=== PATIENT | male | born 1980 | race American Indian/Alaskan Native ===

== ENCOUNTER 2017-07-03 19:24 | Inpatient (IN) | payer OTHER ==
[2017-07-03 20:12] LABS: Basophils % (Auto) 0.4 % (0.0-1.8); Hematocrit 30.1 % (35.5-45.6); Hemoglobin 9.1 gm/dl (11.8-15.2); Mean Corpuscular HGB Conc 30 % (32-34); Mean Corpuscular Volume 71 fl (84-94); Platelet Count 308 K/mm3 (140-440); Red Blood Count 4.27 M/mm3 (3.65-5.03); White Blood Count 10.8 K/mm3 (4.5-11.0)
[2017-07-03 20:13] LABS: Mean Corpuscular Hemoglobin 21 pg (28-32); Red Cell Distribution Width 22.1 % (13.2-15.2)
[2017-07-03 20:43] LABS: Calcium 8.9 mg/dL (8.4-10.2); Chloride 92.6 mmol/L (98-107)
[2017-07-03 21:10] LABS: Potassium 2.9 mmol/L (3.6-5.0)
[2017-07-04 03:16] LABS: Bilirubin,Urine NEG (Negative); Blood,Urine NEG (Negative); Ketones,Urine NEG (Negative); Leukocyte Esterase,Urine NEG (Negative); Mucus,Urine FEW /HPF; Nitrite,Urine NEG (Negative)
[2017-07-04] MEDS ORDERED: TORADOL IM ONE (04:50)
[2017-07-04] MEDS ORDERED: COLCRYS PO ONE (04:53)
--- NOTE | 2017-07-04 06:12 | Emergency Department Report ---
ED Extremity Problem HPI - General Chief complaint: Extremity Problem,Nontraumatic Stated complaint: NUMBNESS TO RIGHT HAND Time Seen by Provider: 07/04/17 04:49 Source: patient Mode of arrival: Ambulatory Limitations: No Limitations - History of Present Illness Initial comments: 37 YO MALE WITH COMPLAINT OF RIGHT HAND SWELLING SINCE FRIDAY. HIS SWELLING HAS INCREASED . HE HAD SIMILAR PAIN AND SWELLING 2 MONTHS AGO AND IT RESOLVED ON ITS OWN. HE IS MORBIDLY OBESE WITH H/O CHF, HYPERTENSION AND GOUT MD Complaint: extremity pain -: Gradual Location: right, upper extremity History of Same: Yes (2 MONTHS AGO, WITH RIGHT INDEX FINGER) Severity scale (0 -10): 6 Quality: aching Consistency: constant Improves with: immobilization Worsens with: other (MOVEMENT) Associated Symptoms: denies: chest pain, shortness of breath - Related Data Home Medications Medication Instructions Recorded Confirmed Last Taken Furosemide [Lasix] 80 mg PO BID 12/16/14 05/22/16 05/22/16 Apixaban [Eliquis] 5 mg PO BID 05/22/16 05/22/16 05/22/16 Sacubitril/Valsartan [Entresto 24 1 each PO BID 05/22/16 05/22/16 05/22/16 mg-26 mg Tablet] Previous Rx's Medication Instructions Recorded Last Taken Type Pantoprazole [Protonix TAB] 20 mg PO BID #60 tablet 12/02/13 05/22/16 Rx Albuterol *Only Ed* [Proventil 2.5 mg IH BID PRN #1 box 11/04/14 04/13/15 Rx 0.5% NEBS] Aspirin EC [Aspirin Enteric Coated 81 mg PO QDAY #30 tablet. 11/04/14 Rx TAB] Simvastatin [Zocor TAB] 5 mg PO QHS 30 Days 11/04/14 04/13/15 Rx Colchicine [Colcrys] 0.6 mg PO BID #30 tab 05/28/16 Unknown Rx Digoxin [Digitek] 250 mcg PO DAILY #30 tablet 05/28/16 Unknown Rx Metoprolol [Lopressor TAB] 50 mg PO TID #90 tablet 05/28/16 Unknown Rx Clindamycin [Clindamycin CAP] 300 mg PO Q8H #30 cap 06/16/16 Unknown Rx Allergies Allergy/AdvReac Type Severity Reaction Status Date / Time No Known Allergies Allergy Unverified 11/25/13 21:37 ED Review of Systems ROS: Stated complaint: NUMBNESS TO RIGHT HAND Other details as noted in HPI Constitutional: denies: chills, fever Eyes: denies: eye pain, eye discharge, vision change ENT: denies: ear pain, throat pain Respiratory: denies: cough, shortness of breath, wheezing Cardiovascular: denies: chest pain, palpitations Endocrine: no symptoms reported Gastrointestinal: denies: abdominal pain, nausea, diarrhea Genitourinary: denies: urgency, dysuria Musculoskeletal: denies: back pain, joint swelling, arthralgia Skin: denies: rash, lesions Neurological: denies: headache, weakness, paresthesias Psychiatric: denies: anxiety, depression Hematological/Lymphatic: denies: easy bleeding, easy bruising ED Past Medical Hx - Past Medical History Previous Medical History?: Yes Hx Hypertension: Yes Hx Congestive Heart Failure: Yes Hx Diabetes: No Hx Pulmonary Embolism: No Hx Asthma: No Hx COPD: No Hx Tuberculosis: No Hx HIV: No Additional medical history: HX BRONCHITIS, pneumonia, A-fib,GOUT - Surgical History Past Surgical History?: No - Social History Smoking Status: Never Smoker Substance Use Type: None - Medications Home Medications: Home Medications Medication Instructions Recorded Confirmed Last Taken Type Pantoprazole [Protonix TAB] 20 mg PO BID #60 tablet 12/02/13 05/22/16 05/22/16 Rx Albuterol *Only Ed* [Proventil 2.5 mg IH BID PRN #1 box 11/04/14 05/22/1604/13 Rx 0.5% NEBS] Aspirin EC [Aspirin Enteric Coated 81 mg PO QDAY #30 tablet.dr 11/04/1405/22/16 Rx TAB] Simvastatin [Zocor TAB] 5 mg PO QHS 30 Days 11/04/14 05/22/16 04/13/15 Rx Furosemide [Lasix] 80 mg PO BID 12/16/14 05/22/16 05/22/16 History Apixaban [Eliquis] 5 mg PO BID 05/22/16 05/22/16 05/22/16 History Sacubitril/Valsartan [Entresto 24 1 each PO BID 05/22/16 05/22/16 05/22/16 History mg-26 mg Tablet] Colchicine [Colcrys] 0.6 mg PO BID #30 tab 05/28/16 Unknown Rx Digoxin [Digitek] 250 mcg PO DAILY #30 tablet 05/28/16 Unknown Rx Metoprolol [Lopressor TAB] 50 mg PO TID #90 tablet 05/28/16 Unknown Rx Clindamycin [Clindamycin CAP] 300 mg PO Q8H #30 cap 06/16/16 Unknown Rx ED Physical Exam - General Limitations: No Limitations General appearance: alert - Head Head exam: Present: atraumatic, normocephalic, normal inspection - Eye Eye exam: Present: normal appearance, EOMI - ENT ENT exam: Present: mucous membranes moist - Neck Neck exam: Present: normal inspection - Respiratory Respiratory exam: Present: normal lung sounds bilaterally. Absent: respiratory distress - Cardiovascular Cardiovascular Exam: Present: regular rate, normal rhythm, normal heart sounds - GI/Abdominal GI/Abdominal exam: Present: soft. Absent: tenderness, guarding, rebound - Extremities Exam Extremities exam: Present: tenderness (RIGHT HAND), pedal edema (BILATERAL LOWER EXTREMITY 4+) - Back Exam Back exam: Present: full ROM, rash noted - Neurological Exam Neurological exam: Present: alert, oriented X3 - Psychiatric Psychiatric exam: Present: normal affect, normal mood - Skin Skin exam: Present: dry, rash (MULTIPLE UMBILICATED HEALING LESIONS) ED Course Vital Signs 07/03/17 19:34 Temperature 97.6 F Pulse Rate 68 Respiratory 16 Rate Blood Pressure 130/89 O2 Sat by Pulse 98 Oximetry ED Medical Decision Making - Lab Data Result diagrams: 07/03/17 19:56 07/03/17 19:56 Critical care attestation.: If time is entered above; I have spent that time in minutes in the direct care of this critically ill patient, excluding procedure time. ED Disposition Clinical Impression: CHF exacerbation Qualifiers: Congestive heart failure type: unspecified congestive heart failure type Qualified Code(s): I50.9 - Heart failure, unspecified Obesity Qualifiers: Obesity type: unspecified obesity type Obesity classification: adult class 3 ( BMI >= 40) Serious obesity comorbidity presence: with serious comorbidity Body mass index: unspecified BMI Qualified Code(s): E66.9 - Obesity, unspecified Gout attack Qualifiers: Gout site: hand Encounter type: initial encounter Laterality: right Disposition: DC-09 OP ADMIT IP TO THIS HOSP Is pt being admited?: Yes Does the pt Need Aspirin: No Condition: Stable Referrals: PRIMARY CARE,MD [Primary Care Provider] - 3-5 Days
--- NOTE | 2017-07-04 07:17 | XRay Report ---
Right hand 3 views: History pleuritic and swelling and pain. Findings: No articular abnormality. No periosteal reaction or lytic lesion. No soft tissue calcification. No fracture. Impression: No evidence of acute fracture.
[2017-07-04] MEDS ORDERED: MORPHINE IV PRN (08:08)
[2017-07-04] MEDS ORDERED: TYLENOL PO PRN (08:08)
[2017-07-04] MEDS ORDERED: MILK OF MAGNESIA PO PRN (08:08)
[2017-07-04] MEDS ORDERED: NON-FORMULARY (Albuterol *Only Ed* [Proventil 0.5% Nebs] 2.5 MG) IH PRN (08:13)
[2017-07-04] MEDS ORDERED: ZOFRAN IM PRN (08:18)
--- NOTE | 2017-07-04 08:27 | History and Physical Report ---
<PARUL CA - Last Filed: 07/04/17 13:00> History of Present Illness Date of examination: 07/04/17 Date of admission: 07/04/2017 Chief complaint: Shortness of breath, right upper arm pain and Bilateral LE swelling History of present illness: Patient is a 36-year-old black male with past medical history of A. fib, hypertension, pulmonary embolism, CHF, chronic kidney disease, obesity comes emergency room with complaints of shortness breath,and increasing lower extremity swelling that has worsened over the last 3 days and right upper arm selling with pain. Patient was until 4 days ago patient was at his normal baseline state of health. Patient developed difficulty of breathing 3 days ago and he has had progressive worsening of shortness of breath. Last night when his trying to sleep on his bed, shortly after, he felt like he could not catch his breath and got worried so called 911 and brought him to the Emergency Department. Also he complains numbness and tingling to right hand, since yesterday. He reported right hand swollen. Posterior sensation; no other neuro deficit. Denies injury to right arm. Patient denies he has had no fevers , chills, or night sweats. No hx of recurrent pneumonia. He has no sick contact , TB exposure. Past History Past Medical History: heart failure, hypertension, hyperlipidemia, pulmonary embolism Past Surgical History: No surgical history Social history: lives with family. denies: smoking, alcohol abuse Family history: diabetes, hypertension Medications and Allergies Allergies Allergy/AdvReac Type Severity Reaction Status Date / Time No Known Allergies Allergy Unverified 11/25/13 21:37 Home Medications Medication Instructions Recorded Confirmed Last Taken Type Pantoprazole [Protonix TAB] 20 mg PO BID #60 tablet 12/02/13 05/22/16 05/22/16 Rx Albuterol *Only Ed* [Proventil 2.5 mg IH BID PRN #1 box 11/04/14 05/22/1604/13 Rx 0.5% NEBS] Aspirin EC [Aspirin Enteric Coated 81 mg PO QDAY #30 tablet. 11/04/1405/22/16 Rx TAB] Simvastatin [Zocor TAB] 5 mg PO QHS 30 Days 11/04/14 05/22/16 04/13/15 Rx Furosemide [Lasix] 80 mg PO BID 12/16/14 05/22/16 05/22/16 History Apixaban [Eliquis] 5 mg PO BID 05/22/16 05/22/16 05/22/16 History Sacubitril/Valsartan [Entresto 24 1 each PO BID 05/22/16 05/22/16 05/22/16 History mg-26 mg Tablet] Colchicine [Colcrys] 0.6 mg PO BID #30 tab 05/28/16 Unknown Rx Digoxin [Digitek] 250 mcg PO DAILY #30 tablet 05/28/16 Unknown Rx Metoprolol [Lopressor TAB] 50 mg PO TID #90 tablet 05/28/16 Unknown Rx Clindamycin [Clindamycin CAP] 300 mg PO Q8H #30 cap 06/16/16 Unknown Rx Active Meds: Active Medications Acetaminophen (Tylenol) 650 mg PO Q4H PRN PRN Reason: Pain MILD(1-3)/Fever >100.5/[place] Apixaban (Eliquis) 5 mg PO BID [facility] PRN Reason: Protocol Aspirin (Halfprin Ec) 81 mg PO QDAY [facility]ANYA Bisacodyl (Dulcolax) 10 mg [place] QDAY PRN PRN Reason: Constipation unrelieved by MOM Colchicine (Colcrys) 0.6 mg PO BID [facility] Digoxin (Lanoxin) 0.25 mg PO DAILY [facility] Furosemide (Lasix) 40 mg IV BID [facility] Heparin Sodium (Porcine) (Heparin) 5,000 unit SUB-Q Q12HR [facility] Magnesium Hydroxide (Milk Of Magnesia) 30 ml PO Q4H PRN PRN Reason: Constipation Metoprolol Tartrate (Lopressor) 50 mg PO TID [facility] Miscellaneous Medication (Albuterol *Only Ed* [Proventil 0.5% Nebs]) 2.5 mg IH BID PRN PRN Reason: Dyspnea Miscellaneous Medication (Sacubitril/Valsartan) 1 each PO BID [facility] Miscellaneous Medication (Simvastatin [Zocor Tab]) 5 mg PO QHS [facility] Morphine Sulfate (Morphine) 2 mg IV Q4H PRN PRN Reason: Pain, Moderate (4-6) Ondansetron HCl (Zofran) 4 mg IM Q4H PRN PRN Reason: Nausea And Vomiting Pantoprazole Sodium (Protonix) 20 mg PO BID [facility] Review of Systems Constitutional: no weight loss, no weight gain, no fever Ears, nose, mouth and throat: no decreased hearing, no nose pain, no nasal congestion Cardiovascular: chest pain, shortness of breath, dyspnea on exertion, paroxysmal nocturnal dyspnea, no palpitations, no rapid/irregular heart beat Respiratory: shortness of breath Gastrointestinal: no diarrhea, no constipation, no change in bowel habits, no hematemesis Genitourinary Male: no urinary frequency, no urinary hesitancy, no nocturia, no incontinence Musculoskeletal: arm numbness/tingling, no neck stiffness, no neck pain, no shooting arm pain, no low back pain Integumentary: no redness, no wounds, no jaundice Neurological: no head injury, no transient paralysis, no paralysis, no weakness Psychiatric: no memory loss, no change in sleep habits, no sleep disturbances, no insomnia Endocrine: no cold intolerance, no heat intolerance, no polyphagia, no excessive thirst Hematologic/Lymphatic: no easy bruising, no easy bleeding Allergic/Immunologic: no urticaria, no allergic rhinitis Exam - Constitutional Vitals: Temp Pulse Resp BP Pulse Ox 98.6 F 78 20 142/80 99 07/04/17 07:30 07/04/17 07:30 07/04/17 07:30 07/04/17 07:30 07/04/17 07:30 General appearance: Present: no acute distress - EENT Eyes: Present: PERRL ENT: hearing intact - Neck Neck: Present: supple - Respiratory Respiratory effort: normal Respiratory: bilateral: CTA - Cardiovascular Rhythm: regular Heart Sounds: Present: S1 & S2 - Extremities Extremity abnormal: edema (bilateral lower extremity and right upper extremity) Peripheral Pulses: within normal limits - Abdominal General gastrointestinal: Present: soft, non-tender Male genitourinary: Present: deferred - Rectal Rectal Exam: deferred - Integumentary Integumentary: Present: clear, warm, dry - Musculoskeletal Musculoskeletal: strength equal bilaterally - Psychiatric Psychiatric: appropriate mood/affect - Neurologic Neurologic: CNII-XII intact - Allied Health Allied health notes reviewed: nursing Results - Labs CBC & Chem 7: 07/03/17 19:56 07/03/17 19:56 Labs: Laboratory Last Values WBC 10.8 K/mm3 (4.5-11.0) 07/03/17 19:56 RBC 4.27 M/mm3 (3.65-5.03) 07/03/17 19:56 Hgb 9.1 gm/dl (11.8-15.2) L 07/03/17 19:56 Hct 30.1 % (35.5-45.6) L 07/03/17 19:56 MCV 71 fl (84-94) L 07/03/17 19:56 MCH 21 pg (28-32) L 07/03/17 19:56 MCHC 30 % (32-34) L 07/03/17 19:56 RDW 22.1 % (13.2-15.2) H 07/03/17 19:56 Plt Count 308 K/mm3 (140-440) 07/03/17 19:56 Lymph % (Auto) 5.1 % (13.4-35.0) L 07/03/17 19:56 [place] % (Auto) 10.7 % (0.0-7.3) H 07/03/17 19:56 Eos % (Auto) 0.0 % (0.0-4.3) 07/03/17 19:56 Baso % (Auto) 0.4 % (0.0-1.8) 07/03/17 19:56 Lymph # 0.6 K/mm3 (1.2-5.4) L 07/03/17 19:56 [place] # 1.2 K/mm3 (0.0-0.8) H 07/03/17 19:56 Eos # 0.0 K/mm3 (0.0-0.4) 07/03/17 19:56 Baso # 0.0 K/mm3 (0.0-0.1) 07/03/17 19:56 Seg Neutrophils % 83.8 % (40.0-70.0) H 07/03/17 19:56 Seg Neutrophils # 9.1 K/mm3 (1.8-7.7) H 07/03/17 19:56 Sodium 140 mmol/L (137-145) 07/03/17 19:56 Potassium 2.9 mmol/L (3.6-5.0) L* 07/03/17 19:56 Chloride 92.6 mmol/L (98-107) L 07/03/17 19:56 Carbon Dioxide 29 mmol/L (22-30) 07/03/17 19:56 Anion Gap 21 mmol/L 07/03/17 19:56 BUN 47 mg/dL (9-20) H 07/03/17 19:56 Creatinine 1.8 mg/dL (0.8-1.5) H 07/03/17 19:56 Estimated GFR 51 ml/min 07/03/17 19:56 BUN/Creatinine Ratio 26 % 07/03/17 19:56 Glucose 102 mg/dL (75-100) H 07/03/17 19:56 Calcium 8.9 mg/dL (8.4-10.2) 07/03/17 19:56 NT-Pro-B Natriuret Pep 9266 pg/mL (0-450) H 07/03/17 19:56 Urine Color Yellow (Yellow) 07/03/17 Unknown Urine Turbidity Clear (Clear) 07/03/17 Unknown Urine pH 5.0 (5.0-7.0) 07/03/17 Unknown Ur Specific [place] 1.016 (1.003-1.030) 07/03/17 Unknown Urine Protein 30 mg/dl mg/dL (Negative) 07/03/17 Unknown Urine Glucose (UA) Neg mg/dL (Negative) 07/03/17 Unknown Urine Ketones Neg mg/dL (Negative) 07/03/17 Unknown Urine Blood Neg (Negative) 07/03/17 Unknown Urine Nitrite Neg (Negative) 07/03/17 Unknown Urine Bilirubin Neg (Negative) 07/03/17 Unknown Urine Urobilinogen 4.0 mg/dL (<2.0) 07/03/17 Unknown Ur Leukocyte Esterase Neg (Negative) 07/03/17 Unknown Urine WBC (Auto) 2.0 /HPF (0.0-6.0) 07/03/17 Unknown Urine RBC (Auto) 3.0 /HPF (0.0-6.0) 07/03/17 Unknown U Epithel Cells (Auto) < 1.0 /HPF (0-13.0) 07/03/17 Unknown Urine Mucus Few /HPF 07/03/17 Unknown Assessment and Plan Assessment and plan: Acute on chronic systolic Congestive heart failure Echocardiogram with EF 15-20% on 05/31 , severe LAE, RV dysfunction. IV Diuresis, beta blockers and ACEI/ARB Strict I&O's and daily weights Low-sodium/cardiac diet/fluid restriction Closely monitor electrolytes Cardiology evaluation Dilated Cardiomyopathy Echocardiogram with EF 15-20% on 05/31 , severe LAE, RV dysfunction Cardiology consult Hypokalemia. Replete potassium as needed. Closely monitor electrolytes Elevated D-dimer VL LE doppler negative CTA ordered Acute gout Start on colchicine Hypertensive urgency Continue home antihypertensive medications Closely monitor blood pressure Hyperlipidemia. Continue Zocor Chronic Atrial Fibrillation on eliquis for anticoagulation Chronic anemia H&H stable for patient at this point; no blood transfusions needed Closely monitor H&H DVT prophylaxis On Elquis Advance Directives: Yes VTE prophylaxis?: Chemical Contraindication Mechanical VTE Prophylaxis: Treatment Not Indicated Plan of care discussed with patient/family: Yes <EDDY MCCLENDON - Last Filed: 07/04/17 15:02> History of Present Illness Date of admission: 07/04/17 08:08 Medications and Allergies Active Meds: Active Medications Acetaminophen (Tylenol) 650 mg PO Q4H PRN PRN Reason: Pain MILD(1-3)/Fever >100.5/DEL TORO Albuterol (Proventil) 2.5 mg IH Q4HRT PRN PRN Reason: Dyspnea Apixaban (Eliquis) 5 mg PO BID [facility] PRN Reason: Protocol Last Admin: 07/04/17 11:04 Dose: 5 mg Aspirin (Halfprin Ec) 81 mg PO QDAY [facility] Last Admin: 07/04/17 11:04 Dose: 81 mg Bisacodyl (Dulcolax) 10 mg [place] QDAY PRN PRN Reason: Constipation unrelieved by MOM Colchicine (Colcrys) 0.6 mg PO BID [facility] Last Admin: 07/04/17 11:04 Dose: 0.6 mg Digoxin (Lanoxin) 0.25 mg PO DAILY [facility] Last Admin: 07/04/17 11:05 Dose: 0.25 mg Furosemide (Lasix) 40 mg IV BID [facility] Last Admin: 07/04/17 11:05 Dose: 40 mg Potassium Chloride (Kcl 10meq/100ml) 10 meq in 100 mls @ 100 mls/hr IV Q1H [facility] Stop: 07/04/17 16:59 Last Admin: 07/04/17 13:29 Dose: 100 mls/hr Magnesium Hydroxide (Milk Of Magnesia) 30 ml PO Q4H PRN PRN Reason: Constipation Metoprolol Tartrate (Lopressor) 50 mg PO TID [facility] Miscellaneous Medication (Sacubitril/Valsartan) 1 each PO BID [facility] Last Admin: 07/04/17 11:05 Dose: Not Given Morphine Sulfate (Morphine) 2 mg IV Q4H PRN PRN Reason: Pain, Moderate (4-6) Ondansetron HCl (Zofran) 4 mg IM Q4H PRN PRN Reason: Nausea And Vomiting Pantoprazole Sodium (Protonix) 20 mg PO BID [facility] Last Admin: 07/04/17 11:05 Dose: 20 mg Simvastatin (Zocor) 5 mg PO QHS [facility] Exam - Constitutional Vitals: Temp Pulse Resp BP Pulse Ox 98.6 F 78 20 142/80 99 07/04/17 07:30 07/04/17 07:30 07/04/17 07:30 07/04/17 07:30 07/04/17 07:30 Results - Labs CBC & Chem 7: 07/03/17 19:56 07/03/17 19:56 Labs: Laboratory Last Values WBC 10.8 K/mm3 (4.5-11.0) 07/03/17 19:56 RBC 4.27 M/mm3 (3.65-5.03) 07/03/17 19:56 Hgb 9.1 gm/dl (11.8-15.2) L 07/03/17 19:56 Hct 30.1 % (35.5-45.6) L 07/03/17 19:56 MCV 71 fl (84-94) L 07/03/17 19:56 MCH 21 pg (28-32) L 07/03/17 19:56 MCHC 30 % (32-34) L 07/03/17 19:56 RDW 22.1 % (13.2-15.2) H 07/03/17 19:56 Plt Count 308 K/mm3 (140-440) 07/03/17 19:56 Lymph % (Auto) 5.1 % (13.4-35.0) L 07/03/17 19:56 [place] % (Auto) 10.7 % (0.0-7.3) H 07/03/17 19:56 Eos % (Auto) 0.0 % (0.0-4.3) 07/03/17 19:56 Baso % (Auto) 0.4 % (0.0-1.8) 07/03/17 19:56 Lymph # 0.6 K/mm3 (1.2-5.4) L 07/03/17 19:56 [place] # 1.2 K/mm3 (0.0-0.8) H 07/03/17 19:56 Eos # 0.0 K/mm3 (0.0-0.4) 07/03/17 19:56 Baso # 0.0 K/mm3 (0.0-0.1) 07/03/17 19:56 Seg Neutrophils % 83.8 % (40.0-70.0) H 07/03/17 19:56 Seg Neutrophils # 9.1 K/mm3 (1.8-7.7) H 07/03/17 19:56 D-Dimer 714.39 ng/mlDDU (0-234) H 07/04/17 08:45 Sodium 140 mmol/L (137-145) 07/03/17 19:56 Potassium 2.9 mmol/L (3.6-5.0) L* 07/03/17 19:56 Chloride 92.6 mmol/L (98-107) L 07/03/17 19:56 Carbon Dioxide 29 mmol/L (22-30) 07/03/17 19:56 Anion Gap 21 mmol/L 07/03/17 19:56 BUN 47 mg/dL (9-20) H 07/03/17 19:56 Creatinine 1.8 mg/dL (0.8-1.5) H 07/03/17 19:56 Estimated GFR 51 ml/min 07/03/17 19:56 BUN/Creatinine Ratio 26 % 07/03/17 19:56 Glucose 102 mg/dL (75-100) H 07/03/17 19:56 Calcium 8.9 mg/dL (8.4-10.2) 07/03/17 19:56 NT-Pro-B Natriuret Pep 9266 pg/mL (0-450) H 07/03/17 19:56 Urine Color Yellow (Yellow) 07/03/17 Unknown Urine Turbidity Clear (Clear) 07/03/17 Unknown Urine pH 5.0 (5.0-7.0) 07/03/17 Unknown Ur Specific [place] 1.016 (1.003-1.030) 07/03/17 Unknown Urine Protein 30 mg/dl mg/dL (Negative) 07/03/17 Unknown Urine Glucose (UA) Neg mg/dL (Negative) 07/03/17 Unknown Urine Ketones Neg mg/dL (Negative) 07/03/17 Unknown Urine Blood Neg (Negative) 07/03/17 Unknown Urine Nitrite Neg (Negative) 07/03/17 Unknown Urine Bilirubin Neg (Negative) 07/03/17 Unknown Urine Urobilinogen 4.0 mg/dL (<2.0) 07/03/17 Unknown Ur Leukocyte Esterase Neg (Negative) 07/03/17 Unknown Urine WBC (Auto) 2.0 /HPF (0.0-6.0) 07/03/17 Unknown Urine RBC (Auto) 3.0 /HPF (0.0-6.0) 07/03/17 Unknown U Epithel Cells (Auto) < 1.0 /HPF (0-13.0) 07/03/17 Unknown Urine Mucus Few /HPF 07/03/17 Unknown Assessment and Plan Assessment and plan: I saw and evaluated the patient. I agree with the findings and the plan of care as documented in the Nurse Practitioner's~note, with the following corrections and additions. Patient reports he has been out of his medication for months. Waxing and waning respiratory status and came to the hospital due to worsening right upper ext swelling and pain. Will manage as above. Will hold colchine in the setting of renal dysfunction and use steriods Will obtain V/Q scan, patients size may be prohibitive. Renal function is prohibitive for PE Will resume home meds. counselling provided to the pateint. Review meds on discharge and will discuss with cardiology about cheaper alternatives.
[2017-07-04] MEDS ORDERED: DULCOLAX PR PRN (10:00)
[2017-07-04] MEDS ORDERED: VALSARTAN PO SCH (10:00)
[2017-07-04] MEDS ORDERED: SACUBITRIL PO SCH (10:00)
[2017-07-04] MEDS ORDERED: COLCRYS PO SCH (10:00)
[2017-07-04] MEDS ORDERED: HEPARIN SUB-Q SCH ×2 (10:00→22:00)
[2017-07-04] MEDS ORDERED: PROVENTIL IH PRN (10:28)
[2017-07-04] MEDS: ELIQUIS PO SCH ×2 (11:04→23:21)
[2017-07-04] MEDS: HALFPRIN EC PO SCH (11:04)
[2017-07-04] MEDS: LANOXIN PO SCH (11:05)
[2017-07-04] MEDS: PROTONIX PO SCH ×2 (11:05→23:21)
[2017-07-04] MEDS: LASIX IV SCH ×2 (11:05→23:21)
[2017-07-04] MEDS ORDERED: K-DUR PO ONE (12:30)
[2017-07-04] MEDS: KCL 10MEQ/100ML 10 MEQ/100 ML BAG IV SCH ×4 (13:29→19:06)
--- NOTE | 2017-07-04 15:42 | XRay Report ---
PORTABLE CHEST INDICATION: CHF. COMPARISON: 06/16/2016 FINDINGS: Portable, frontal chest radiograph again demonstrates mild to moderate cardiomegaly. Clear lungs. Unremarkable bones. CONCLUSION: Cardiomegaly without CHF, as described. Thank you for the opportunity to participate in this patient's care.
[2017-07-04] MEDS: LOPRESSOR PO SCH ×2 (17:10→20:47)
[2017-07-04] MEDS: DELTASONE PO SCH (18:14)
[2017-07-04] MEDS ORDERED: SIMVASTATIN 5 MG PO SCH (22:00)
[2017-07-04] MEDS: ZOCOR PO SCH (23:22)
[2017-07-05 04:43] LABS: Basophils % (Auto) 0.1 % (0.0-1.8); Mean Corpuscular HGB Conc 30 % (32-34); Mean Corpuscular Volume 70 fl (84-94); Platelet Count 310 K/mm3 (140-440); Red Blood Count 4.04 M/mm3 (3.65-5.03); White Blood Count 10.9 K/mm3 (4.5-11.0)
[2017-07-05 04:55] LABS: Calcium 8.4 mg/dL (8.4-10.2); Chloride 92.5 mmol/L (98-107); Potassium 3.3 mmol/L (3.6-5.0)
[2017-07-05 05:01] LABS: Hematocrit 28.3 % (35.5-45.6); Hemoglobin 8.4 gm/dl (11.8-15.2)
[2017-07-05 05:02] LABS: Mean Corpuscular Hemoglobin 21 pg (28-32); Red Cell Distribution Width 21.7 % (13.2-15.2)
--- NOTE | 2017-07-05 09:27 | Progress Note ---
Assessment and Plan Assessment and plan: Patient is a 36-year-old black male with past medical history of A. fib, hypertension, pulmonary embolism, CHF, chronic kidney disease, obesity comes emergency room with complaints of shortness breath,and increasing lower extremity swelling that has worsened over the last 3 days and right upper arm selling with pain. Patient was until 4 days ago patient was at his normal baseline state of health. Patient developed difficulty of breathing 3 days ago and he has had progressive worsening of shortness of breath. Last night when his trying to sleep on his bed, shortly after, he felt like he could not catch his breath and got worried so called 911 and brought him to the Emergency Department. Also he complains numbness and tingling to right hand, since yesterday. He reported right hand swollen. Posterior sensation; no other neuro deficit. Denies injury to right arm. Patient denies he has had no fevers , chills, or night sweats. No hx of recurrent pneumonia. He has no sick contact , TB exposure. Acute on chronic systolic Congestive heart failure Echocardiogram with EF 15-20% on 05/31 , severe LAE, RV dysfunction. Change lasix to PO, beta blockers and ACEI/ARB CLOSELY PAY ATTENTION TO RENAL FUNCTION Strict I&O's and daily weights Low-sodium/cardiac diet/fluid restriction Closely monitor electrolytes Cardiology evaluation Dilated Cardiomyopathy Echocardiogram with EF 15-20% on 05/31 , severe LAE, RV dysfunction Cardiology consult Hypokalemia. Replete potassium as needed. Closely monitor electrolytes Elevated D-dimer VL LE doppler negative UNABLE TO GET CTA DUE TO RENAL UNABLE TO GET NM, due to weight Acute gout Held cochine U/S of upper ext and lower ext pending result Chronic KIDNEY DISEASE STAGE 3 NEEDS NEPHROLOGY EVAL CONSIDERING MULTIPLE NEPHROTOXIC MEDS Hypertensive urgency Resolved Continue home antihypertensive medications Closely monitor blood pressure Hyperlipidemia. Continue Zocor Chronic Atrial Fibrillation on eliquis for anticoagulation Chronic anemia H&H stable for patient at this point; no blood transfusions needed Closely monitor H&H dvt/gi PROPHY Discharge in AM if remains stable. Needs close follow up with [facility] APPRENTICE, CARDS, MEDICAL DRIVER. Needs prescription on discharge History Interval history: Patient seen and examined, reports some improvement in the right upper ext but not at baseline yet. No shortness of breath today Hospitalist Physical - Physical exam Narrative exam: VITAL SIGNS: Reviewed. GENERAL: The patient appeared well nourished and normally developed, MORBIDLY OBESE. Vital signs as documented. HEAD: No signs of head trauma. EYES: Pupils are equal. Extraocular motions intact. EARS: Hearing grossly intact. MOUTH: Oropharynx is normal. NECK: No adenopathy, no JVD. CHEST: Chest with clear breath sounds bilaterally. No wheezes, rales, or rhonchi. CARDIAC: Regular rate and rhythm. S1 and S2, without murmurs, gallops, or rubs. VASCULAR: TRACE Edema. Peripheral pulses normal and equal in all extremities. ABDOMEN: Soft, without detectable tenderness. No sign of distention. No rebound or guarding, and no masses palpated. Bowel Sounds normal. MUSCULOSKELETAL: Good range of motion of all major joints. Extremities without clubbing, cyanosis TRACE EDEAM. NEUROLOGIC EXAM: Alert and oriented x 3. No focal sensory or strength deficits. Speech normal. Follows commands. PSYCHIATRIC: Mood normal. SKIN: No rash or lesions. - Constitutional Vitals: Temp Pulse Resp BP Pulse Ox 98.6 F 93 H 20 113/66 96 07/05/17 07:56 07/05/17 07:56 07/05/17 07:56 07/05/17 07:56 07/05/17 07:56 General appearance: Present: no acute distress Results - Labs CBC & Chem 7: 07/05/17 04:08 07/05/17 04:08 Labs: Laboratory Last Values WBC 10.9 K/mm3 (4.5-11.0) 07/05/17 04:08 RBC 4.04 M/mm3 (3.65-5.03) 07/05/17 04:08 Hgb 8.4 gm/dl (11.8-15.2) L 07/05/17 04:08 Hct 28.3 % (35.5-45.6) L 07/05/17 04:08 MCV 70 fl (84-94) L 07/05/17 04:08 MCH 21 pg (28-32) L 07/05/17 04:08 MCHC 30 % (32-34) L 07/05/17 04:08 RDW 21.7 % (13.2-15.2) H 07/05/17 04:08 Plt Count 310 K/mm3 (140-440) 07/05/17 04:08 Lymph % (Auto) 4.7 % (13.4-35.0) L 07/05/17 04:08 [place] % (Auto) 6.2 % (0.0-7.3) 07/05/17 04:08 Eos % (Auto) 0.0 % (0.0-4.3) 07/05/17 04:08 Baso % (Auto) 0.1 % (0.0-1.8) 07/05/17 04:08 Lymph # 0.5 K/mm3 (1.2-5.4) L 07/05/17 04:08 [place] # 0.7 K/mm3 (0.0-0.8) 07/05/17 04:08 Eos # 0.0 K/mm3 (0.0-0.4) 07/05/17 04:08 Baso # 0.0 K/mm3 (0.0-0.1) 07/05/17 04:08 Seg Neutrophils % 89.0 % (40.0-70.0) H 07/05/17 04:08 Seg Neutrophils # 9.7 K/mm3 (1.8-7.7) H 07/05/17 04:08 D-Dimer 714.39 ng/mlDDU (0-234) H 07/04/17 08:45 Sodium 138 mmol/L (137-145) 07/05/17 04:08 Potassium 3.3 mmol/L (3.6-5.0) L 07/05/17 04:08 Chloride 92.5 mmol/L (98-107) L 07/05/17 04:08 Carbon Dioxide 33 mmol/L (22-30) H 07/05/17 04:08 Anion Gap 16 mmol/L 07/05/17 04:08 BUN 55 mg/dL (9-20) H 07/05/17 04:08 Creatinine 1.9 mg/dL (0.8-1.5) H 07/05/17 04:08 Estimated GFR 48 ml/min 07/05/17 04:08 BUN/Creatinine Ratio 29 % 07/05/17 04:08 Glucose 119 mg/dL (75-100) H 07/05/17 04:08 Calcium 8.4 mg/dL (8.4-10.2) 07/05/17 04:08 NT-Pro-B Natriuret Pep 9266 pg/mL (0-450) H 07/03/17 19:56 Urine Color Yellow (Yellow) 07/03/17 Unknown Urine Turbidity Clear (Clear) 07/03/17 Unknown Urine pH 5.0 (5.0-7.0) 07/03/17 Unknown Ur Specific [place] 1.016 (1.003-1.030) 07/03/17 Unknown Urine Protein 30 mg/dl mg/dL (Negative) 07/03/17 Unknown Urine Glucose (UA) Neg mg/dL (Negative) 07/03/17 Unknown Urine Ketones Neg mg/dL (Negative) 07/03/17 Unknown Urine Blood Neg (Negative) 07/03/17 Unknown Urine Nitrite Neg (Negative) 07/03/17 Unknown Urine Bilirubin Neg (Negative) 07/03/17 Unknown Urine Urobilinogen 4.0 mg/dL (<2.0) 07/03/17 Unknown Ur Leukocyte Esterase Neg (Negative) 07/03/17 Unknown Urine WBC (Auto) 2.0 /HPF (0.0-6.0) 07/03/17 Unknown Urine RBC (Auto) 3.0 /HPF (0.0-6.0) 07/03/17 Unknown U Epithel Cells (Auto) < 1.0 /HPF (0-13.0) 07/03/17 Unknown Urine Mucus Few /HPF 07/03/17 Unknown - Imaging and Cardiology Chest x-ray: image reviewed (NO CONGESTION)
[2017-07-05] MEDS: DELTASONE PO SCH (10:32)
[2017-07-05] MEDS: PROTONIX PO SCH ×2 (10:33→21:35)
[2017-07-05] MEDS: LANOXIN PO SCH (10:33)
[2017-07-05] MEDS: HALFPRIN EC PO SCH (10:34)
[2017-07-05] MEDS: LOPRESSOR PO SCH ×3 (10:34→20:33)
[2017-07-05] MEDS: ELIQUIS PO SCH ×2 (10:34→21:35)
[2017-07-05] MEDS: LASIX IV SCH ×2 (10:35→21:36)
[2017-07-05] MEDS ORDERED: Fluarix Quad 2017-2018(36 MOS+) IM ONE (12:00)
[2017-07-05] MEDS ORDERED: K-DUR PO ONE (15:00)
[2017-07-05] MEDS: ZOCOR PO SCH (21:35)
[2017-07-06 05:02] LABS: Calcium 8.5 mg/dL (8.4-10.2); Chloride 92.4 mmol/L (98-107); Potassium 3.4 mmol/L (3.6-5.0)
[2017-07-06 05:36] LABS: Hematocrit 28.6 % (35.5-45.6); Hemoglobin 8.6 gm/dl (11.8-15.2); Mean Corpuscular HGB Conc 30 % (32-34); Platelet Count 306 K/mm3 (140-440); Red Blood Count 4.11 M/mm3 (3.65-5.03); White Blood Count 11.7 K/mm3 (4.5-11.0)
[2017-07-06 05:50] LABS: Mean Corpuscular Hemoglobin 21 pg (28-32); Mean Corpuscular Volume 70 fl (84-94); Red Cell Distribution Width 21.7 % (13.2-15.2)
[2017-07-06] MEDS: ELIQUIS PO SCH ×2 (09:18→22:10)
[2017-07-06] MEDS: PROTONIX PO SCH ×2 (09:18→22:10)
[2017-07-06] MEDS: LASIX IV SCH ×2 (09:18→22:00)
[2017-07-06] MEDS: HALFPRIN EC PO SCH (09:18)
[2017-07-06] MEDS: LANOXIN PO SCH (09:20)
[2017-07-06] MEDS: DELTASONE PO SCH (09:20)
[2017-07-06] MEDS: LOPRESSOR PO SCH ×3 (09:20→20:13)
--- NOTE | 2017-07-06 10:05 | Consultation ---
History of Present Illness Consult date: 07/06/17 Consult reason: congestive heart failure History of present illness: 56-year-old obese -[place] male presenting with right arm swelling for the past few days with pain and in ability to make a clenched fist. He denies any chest pain. Patient was admitted for for the treatment. Symptoms not felt to be cardiac.. Past History Past Medical History: heart failure, hypertension, hyperlipidemia, pulmonary embolism Past Surgical History: No surgical history Social history: lives with family. denies: smoking, alcohol abuse Family history: diabetes, hypertension Medications and Allergies Allergies Allergy/AdvReac Type Severity Reaction Status Date / Time No Known Allergies Allergy Unverified 11/25/13 21:37 Home Medications Medication Instructions Recorded Confirmed Last Taken Type Aspirin EC [Aspirin Enteric Coated 81 mg PO QDAY #30 tablet. 11/04/1407/03/17 Rx TAB] Furosemide [Lasix] 80 mg PO BID 12/16/14 07/04/17 07/03/17 History Apixaban [Eliquis] 5 mg PO BID 05/22/16 07/04/17 07/03/17 History Sacubitril/Valsartan [Entresto 24 1 each PO BID 05/22/16 07/04/17 07/03/17 History mg-26 mg Tablet] Metoprolol [Lopressor TAB] 50 mg PO TID #90 tablet 05/28/16 07/04/17 07/03/17 Rx Active Meds: Active Medications Acetaminophen (Tylenol) 650 mg PO Q4H PRN PRN Reason: Pain MILD(1-3)/Fever >100.5/DEL TORO Albuterol (Proventil) 2.5 mg IH Q4HRT PRN PRN Reason: Dyspnea Apixaban (Eliquis) 5 mg PO BID [facility] PRN Reason: Protocol Last Admin: 07/06/17 09:18 Dose: 5 mg Aspirin (Halfprin Ec) 81 mg PO QDAY [facility] Last Admin: 07/06/17 09:18 Dose: 81 mg Bisacodyl (Dulcolax) 10 mg OK QDAY PRN PRN Reason: Constipation unrelieved by MOM Digoxin (Lanoxin) 0.25 mg PO DAILY [facility] Last Admin: 07/06/17 09:20 Dose: 0.25 mg Furosemide (Lasix) 40 mg IV BID [facility] Last Admin: 07/06/17 09:18 Dose: 40 mg Magnesium Hydroxide (Milk Of Magnesia) 30 ml PO Q4H PRN PRN Reason: Constipation Metoprolol Tartrate (Lopressor) 50 mg PO TID [facility] Last Admin: 07/06/17 09:20 Dose: 50 mg Miscellaneous Medication (Sacubitril/Valsartan) 1 each PO BID [facility] Last Admin: 07/04/17 11:05 Dose: Not Given Morphine Sulfate (Morphine) 2 mg IV Q4H PRN PRN Reason: Pain, Moderate (4-6) Last Admin: 07/05/17 13:02 Dose: 2 mg Ondansetron HCl (Zofran) 4 mg IM Q4H PRN PRN Reason: Nausea And Vomiting Last Admin: 07/05/17 13:02 Dose: 4 mg Pantoprazole Sodium (Protonix) 20 mg PO BID [facility] Last Admin: 07/06/17 09:18 Dose: 20 mg Prednisone (Deltasone) 40 mg PO QDAY [facility] Last Admin: 07/06/17 09:20 Dose: 40 mg Simvastatin (Zocor) 5 mg PO QHS [facility] Last Admin: 07/05/17 21:35 Dose: 5 mg Review of Systems Constitutional: weight gain, fatigue, weakness Ears, nose, mouth and throat: deferred Cardiovascular: dyspnea on exertion, no orthopnea, no palpitations, no lightheadedness, no shortness of breath, no paroxysmal nocturnal dyspnea, no leg edema Respiratory: dyspnea on exertion, no cough Gastrointestinal: no abdominal pain, no nausea, no melena, no hematochezia Genitourinary Male: no dysuria, no hematuria, no flank pain, no urinary frequency, no urinary hesitancy Musculoskeletal: no neck stiffness, no neck pain, no muscle weakness, no muscle cramps Integumentary: no rash, no pruritis Neurological: no weakness, no parathesias, no numbness, no headaches Psychiatric: no anxiety Endocrine: no cold intolerance, no heat intolerance, no polyphagia, no polydipsia, no polyuria, no nocturia Hematologic/Lymphatic: no easy bruising, no easy bleeding Allergic/Immunologic: no urticaria, no allergic rhinitis Physical Examination Vital Signs Temp Pulse Resp BP Pulse Ox 97.6 F 68 16 130/89 98 07/03/17 19:34 07/03/17 19:34 07/03/17 19:34 07/03/17 19:34 07/03/17 19:34 General appearance: no acute distress, obese HEENT: Positive: PERRL, Normocephaly, Sinus Tenderness Neck: Positive: neck supple, trachea midline. Negative: JVD/HJR Cardiac: Positive: irregularly irregular, S1/S2, S3, PMI, Dilated, Laterally Displaced Lungs: Positive: clear to auscultation, No Wheeze, Rales, Rhonchi Neuro: Positive: Grossly Intact Abdomen: Positive: Soft Extremities: Present: normal. Absent: edema Results 07/06/17 04:04 07/06/17 04:04 CBC 07/06/17 Range/Units 04:04 WBC 11.7 H (4.5-11.0) K/mm3 RBC 4.11 (3.65-5.03) M/mm3 Hgb 8.6 L (11.8-15.2) gm/dl Hct 28.6 L (35.5-45.6) % Plt Count 306 (140-440) K/mm3 Comprehensive Metabolic Panel 07/06/17 Range/Units 04:04 Sodium 138 (137-145) mmol/L Potassium 3.4 L (3.6-5.0) mmol/L Chloride 92.4 L (98-107) mmol/L Carbon Dioxide 32 H (22-30) mmol/L BUN 60 H (9-20) mg/dL Creatinine 1.9 H (0.8-1.5) mg/dL Glucose 109 H (75-100) mg/dL Calcium 8.5 (8.4-10.2) mg/dL EKG interpretations - Telemetry EKG Rhythm: Atrial Fibrillation Assessment and Plan 1. Right arm pain my swelling. Symptoms not felt to be cardiac related. Rule out musculoskeletal pain. 2. Dilated nonischemic cardiomyopathy LV ejection fraction of 20%. 3. Chronic combined systolic and diastolic heart failure stable. 4. Chronic atrial fibrillation with controlled ventricular response. 5. CKD stage 3 6. Essential hypertension. 7. CVA obesity 8. Sleep apnea PLAN. Patient's chest x-ray does not reveal any pulmonary edema. There evidence of mild chronic renal insufficiency which could have explained elevated BNP levels. We'll resume home medication. Evaluation of right arm pain as a primary care physician. No further cardiac workup indicated. Replace electrolytes.
--- NOTE | 2017-07-06 11:09 | Discharge Summary ---
Providers - Providers Date of Admission: 07/04/17 08:08 Date of discharge: 07/06/17 Attending physician: EDDY MCCLENDON MD 07/05/17 09:26 Consult to Physician [CONS] Routine Consulting Provider: MASSIEL ABDALLA Reason For Exam: he is Place consult to:: [place] Notified:: Dr Barahona Phone number called:: on unit Was contact made?: No Time called:: 08:46 07/05/17 10:23 Consult to Physician [CONS] Routine Consulting Provider: SILVANO FRASER Reason For Exam: ckd Place consult to:: [place] Notified:: service Phone number called:: [phone] Was contact made?: Yes If yes, spoke with:: Ame Time called:: 08:52 Primary care physician: MAINTAINER [employer] Hospitalization Reason for admission: Pain in the right hand, unable to make a fist. Combined heart failure. Condition: Stable Pertinent studies: CXR that showed cardiomegaly without CHF Dopper pending Procedures: none Hospital course: Patient is a 36-year-old black male with past medical history of A. fib, hypertension, pulmonary embolism, CHF, chronic kidney disease, obesity comes emergency room with complaints of shortness breath,and increasing lower extremity swelling that has worsened over the last 3 days and right upper arm selling with pain. Patient was until 4 days ago patient was at his normal baseline state of health. Patient developed difficulty of breathing 3 days ago and he has had progressive worsening of shortness of breath. Last night when his trying to sleep on his bed, shortly after, he felt like he could not catch his breath and got worried so called 911 and brought him to the Emergency Department. Also he complains numbness and tingling to right hand, since yesterday. He reported right hand swollen. Posterior sensation; no other neuro deficit. Denies injury to right arm. Patient denies he has had no fevers , chills, or night sweats. No hx of recurrent pneumonia. He has no sick contact , TB exposure. Had hypokalemia nd worsening reanl function for which d/c jeffrey be held Disposition: DC-01 TO HOME OR SELFCARE Exam - Constitutional Vitals: Temp Pulse Resp BP Pulse Ox 97.5 F L 105 H 18 110/78 98 07/06/17 10:00 07/06/17 10:00 07/06/17 10:00 07/06/17 10:00 07/06/17 10:00 Plan Follow up with: PRIMARY MD DEBBI [Primary Care Provider] - 3-5 Days
--- NOTE | 2017-07-06 11:58 | Event Note ---
Date: 07/06/[address] pardo, please call his if nephrology consult needed
--- NOTE | 2017-07-06 14:57 | Progress Note ---
Assessment and Plan Acute on chronic systolic Congestive heart failure Echocardiogram with EF 15-20% on 05/31 , severe LAE, RV dysfunction. Change lasix to PO, beta blockers and ACEI/ARB Worsenign renal function Strict I&O's and daily weights Low-sodium/cardiac diet/fluid restriction Closely monitor electrolytes Cardiology evaluation Dilated Cardiomyopathy Echocardiogram with EF 15-20% on 05/31 , severe LAE, RV dysfunction Cardiology consult Hypokalemia. Improvign with K 3.4 Replete potassium further. Closely monitor electrolytes Elevated D-dimer VL LE doppler negative UNABLE TO GET CTA DUE TO RENAL UNABLE TO GET NM, due to weight Acute gout Pain in the right hand likely secondary to gout. Aggrevate by furosemide. Will get Uric acid level Held cochine b/c renal failure U/S of upper ext and lower ext showed no DVT or SVT Chronic KIDNEY DISEASE Likely secondary diuresis STAGE 3 Awaiting nephrology input Held discharge pending nephrology input on worseing renal failure Subjective Date of service: 07/06/17 Principal diagnosis: Acute combined systolic anddiastolic HF Interval history: Still has shortness of breath on slight exertion. [place] in the right had abating but still present Objective - Constitutional Vitals: Vital Signs - 12hr 07/06/17 07/06/17 07/06/17 06:05 08:36 10:00 Temperature 97.7 F 97.5 F L Pulse Rate 51 L 51 L 105 H Respiratory 21 18 Rate Blood Pressure 138/71 110/78 [Right] O2 Sat by Pulse 98 Oximetry General appearance: Present: no acute distress, well-nourished, obese - EENT Eyes: PERRL, EOM intact - Neck Neck: supple, normal ROM - Respiratory Respiratory effort: normal Respiratory: bilateral: diminished - Cardiovascular Rhythm: regular Heart Sounds: Present: S1 & S2. Absent: gallop, rub Extremities: pulses intact, No edema, normal color, Full ROM - Gastrointestinal General gastrointestinal: Present: soft, non-tender, non-distended, normal bowel sounds - Integumentary Integumentary: clear, warm, dry - Musculoskeletal Musculoskeletal: 1, strength equal bilaterally - Neurologic Neurologic: moves all extremities - Psychiatric Psychiatric: appropriate mood/affect - Labs CBC & Chem 7: 07/06/17 04:04 07/06/17 04:04 Labs: Abnormal lab results 07/06/17 07/06/17 Range/Units 04:04 04:04 WBC 11.7 H (4.5-11.0) K/mm3 Hgb 8.6 L (11.8-15.2) gm/dl Hct 28.6 L (35.5-45.6) % MCV 70 L (84-94) fl MCH 21 L (28-32) pg MCHC 30 L (32-34) % RDW 21.7 H (13.2-15.2) % Potassium 3.4 L (3.6-5.0) mmol/L Chloride 92.4 L (98-107) mmol/L Carbon Dioxide 32 H (22-30) mmol/L BUN 60 H (9-20) mg/dL Creatinine 1.9 H (0.8-1.5) mg/dL Glucose 109 H (75-100) mg/dL
[2017-07-06] MEDS: ZOCOR PO SCH (22:10)
[2017-07-07 08:37] LABS: Albumin 2.4 g/dL (3.9-5); Albumin/Globulin Ratio 0.6 %; Bilirubin,Total 1.5 mg/dL (0.1-1.2); Calcium 8.6 mg/dL (8.4-10.2); Chloride 93.6 mmol/L (98-107); Potassium 3.4 mmol/L (3.6-5.0); Total Protein 6.7 g/dL (6.3-8.2)
[2017-07-07 10:55] VITALS: BP 115/83
[2017-07-07] MEDS: HALFPRIN EC PO SCH (11:11)
[2017-07-07] MEDS: DELTASONE PO SCH (11:12)
[2017-07-07] MEDS: ELIQUIS PO SCH (11:12)
[2017-07-07] MEDS: PROTONIX PO SCH (11:13)
[2017-07-07] MEDS: LANOXIN PO SCH (11:13)
[2017-07-07] MEDS: LOPRESSOR PO SCH (11:14)
--- NOTE | 2017-07-07 11:44 | Progress Note ---
Assessment and Plan Right hand pain/swelling thought secondary to gout attack Hx of Dilated Nonischemic cardiomyopathy no evidence of CHF on cxr EF 15-20% on echo 05/2016 Chronic atrial fibrillation, rate controlled on eliquis for oral anticoagulation Anemia, chronic Hypokalemia Chronic Kidney disease Essential hypertension Morbid Obesity Sleep apnea Recommendations: Continue medical therapy for nonischemic cardiomyopathy and persistent Afib. Stable cardiac chavez. Once discharge, follow up with [facility] within 1 week. Subjective Date of service: 07/07/17 Principal diagnosis: Acute combined systolic anddiastolic HF Interval history: Patient reports he is feeling better. He denies shortness of breath and chest pain. Objective Vital Signs Temp Pulse Pulse Resp BP BP Pulse Ox 07/07/17 11:14 74 115/83 07/07/17 11:13 86 07/07/17 10:54 97.6 F 44 L 115/83 07/07/17 10:00 84 18 98 07/07/17 05:56 97.4 F L 65 20 138/78 98 07/07/17 01:26 97.3 F L 56 L 20 112/86 07/06/17 20:13 79 123/58 07/06/17 19:18 97.9 F 79 20 123/58 07/06/17 19:16 76 123/58 98 07/06/17 17:14 98.6 F 92 H 20 125/92 94 07/06/17 17:10 98.6 F 70 18 125/92 97 - Physical Examination General: No Apparent Distress HEENT: Positive: PERRL Neck: Positive: trachea midline Cardiac: Positive: Reg Rate and Rhythm Lungs: Positive: Decreased Breath Sounds Neuro: Positive: Grossly Intact - Labs and Meds Cardiac Enzymes 07/07/17 Range/Units 07:10 AST 36 (5-40) units/L Comprehensive Metabolic Panel 07/07/17 Range/Units 07:10 Sodium 139 (137-145) mmol/L Potassium 3.4 L (3.6-5.0) mmol/L Chloride 93.6 L (98-107) mmol/L Carbon Dioxide 30 (22-30) mmol/L BUN 66 H (9-20) mg/dL Creatinine 1.9 H (0.8-1.5) mg/dL Glucose 95 (75-100) mg/dL Calcium 8.6 (8.4-10.2) mg/dL AST 36 (5-40) units/L ALT 59 H (7-56) units/L Alkaline Phosphatase 72 (35-129) units/L Total Protein 6.7 (6.3-8.2) g/dL Albumin 2.4 L (3.9-5) g/dL
--- NOTE | 2017-07-07 12:10 | Discharge Summary ---
Providers - Providers Date of Admission: 07/04/17 08:08 Attending physician: EDDY MCCLENDON MD 07/05/17 09:26 Consult to Physician [CONS] Routine Consulting Provider: MASSIEL ABDALLA Reason For Exam: he is Place consult to:: [place] Notified:: Dr Barahona Phone number called:: on unit Was contact made?: No Time called:: 08:46 07/06/17 14:58 Consult to Physician [CONS] Routine Consulting Provider: JULIENNE SEARS Reason For Exam: Acute on chronic renal failure Place consult to:: [place] Notified:: Phone number called:: [phone] Was contact made?: Yes Time called:: 17:54 Primary care physician: AUTOMOTIVE SERVICE DIRECTOR Hospitalization Reason for admission: Pain in the right hand, unable to make a fist. Combined heart failure. Condition: Stable Pertinent studies: cxr cardiomegaly without chf Hospital course: Patient is a 36-year-old black male with past medical history of A. fib, hypertension, pulmonary embolism, CHF, chronic kidney disease, obesity comes emergency room with complaints of shortness breath,and increasing lower extremity swelling that has worsened over the last 3 days and right upper arm selling with pain. Patient was until 4 days ago patient was at his normal baseline state of health. Patient developed difficulty of breathing 3 days ago and he has had progressive worsening of shortness of breath. Last night when his trying to sleep on his bed, shortly after, he felt like he could not catch his breath and got worried so called 911 and brought him to the Emergency Department. Also he complains numbness and tingling to right hand, since yesterday. He reported right hand swollen. Posterior sensation; no other neuro deficit. Denies injury to right arm. Patient denies he has had no fevers , chills, or night sweats. No hx of recurrent pneumonia. He has no sick contact , TB exposure. patient was seen by cardiology with recommendation for conservative management Acute on chronic systolic Congestive heart failure Echocardiogram with EF 15-20% on 05/31 , severe LAE, RV dysfunction. Change lasix to PO, beta blockers and ACEI/ARB CLOSELY PAY ATTENTION TO RENAL FUNCTION Strict I&O's and daily weights Low-sodium/cardiac diet/fluid restriction Closely monitor electrolytes Cardiology evaluation Dilated Cardiomyopathy Echocardiogram with EF 15-20% on 05/31 , severe LAE, RV dysfunction Cardiology consult Hypokalemia. Replete potassium as needed. Closely monitor electrolytes Elevated D-dimer VL LE doppler negative UNABLE TO GET CTA DUE TO RENAL UNABLE TO GET NM, due to weight Acute gout Held cochine U/S of upper ext and lower ext pending result Chronic KIDNEY DISEASE STAGE 3 NEEDS NEPHROLOGY EVAL CONSIDERING MULTIPLE NEPHROTOXIC MEDS Hypertensive urgency Resolved Continue home antihypertensive medications Closely monitor blood pressure Hyperlipidemia. Continue Zocor Chronic Atrial Fibrillation on eliquis for anticoagulation Chronic anemia H&H stable for patient at this point; no blood transfusions needed Closely monitor H&H Disposition: DC-01 TO HOME OR SELFCARE Core Measure Documentation - Palliative Care Palliative Care/ Comfort Measures: Not Applicable - Core Measures Any of the following diagnoses?: none - VTE Discharge Requirements Deep Vein Thrombosis/Pulmonary Embolism Present on Admission: No Exam - Physical Exam Narrative exam: VITAL SIGNS: Reviewed. GENERAL: The patient appeared well nourished and normally developed, MORBIDLY OBESE. Vital signs as documented. HEAD: No signs of head trauma. EYES: Pupils are equal. Extraocular motions intact. EARS: Hearing grossly intact. MOUTH: Oropharynx is normal. NECK: No adenopathy, no JVD. CHEST: Chest with clear breath sounds bilaterally. No wheezes, rales, or rhonchi. CARDIAC: Regular rate and rhythm. S1 and S2, without murmurs, gallops, or rubs. VASCULAR: TRACE Edema. Peripheral pulses normal and equal in all extremities. ABDOMEN: Soft, without detectable tenderness. No sign of distention. No rebound or guarding, and no masses palpated. Bowel Sounds normal. MUSCULOSKELETAL: Good range of motion of all major joints. Extremities without clubbing, cyanosis TRACE EDEAM. NEUROLOGIC EXAM: Alert and oriented x 3. No focal sensory or strength deficits. Speech normal. Follows commands. PSYCHIATRIC: Mood normal. SKIN: No rash or lesions. - Constitutional Vitals: Temp Pulse Resp BP Pulse Ox 97.6 F 74 18 115/83 98 07/07/17 10:54 07/07/17 11:14 07/07/17 10:00 07/07/17 11:14 07/07/17 10:00 Plan Activity: advance as tolerated, fall precautions Diet: low salt, diabetic Special Instructions: record daily weights, record daily BP diary Follow up with: PRIMARY CAREMD [Primary Care Provider] - 3-5 Days MASSIEL ABDALLA MD [Staff Physician] - 7 Days JULIENNE SEARS MD [Staff Physician] - 7 Days Prescriptions: Simvastatin [Zocor TAB] 5 mg PO QHS #30 tablet Digoxin [Lanoxin] 0.25 mg PO DAILY #30 tablet Furosemide [Lasix TAB] 80 mg PO DAILY #30 tablet Pantoprazole [Protonix TAB] 20 mg PO DAILY #30 tablet Prednisone [predniSONE 5 mg (6-Day Pack, 21 Tabs)] 5 mg PO .TAPER #1 tab.ds.pk
--- NOTE | 2017-07-07 14:24 | Consultation ---
History of Present Illness - Reason for Consult Consult date: 07/07/17 chronic renal failure - History of Present Illness This is a 37 year old male who presents to the hospital for a chief complaint swelling to upper extremities/hands. Patient is Morbidly Obese and has a history of Congestive Heart Failure being followed by [facility], Atrial Fibrillation on Eliquis, Hypertension and Chronic Kidney Disease, Stage 3. Patient's baseline serum creatinine is approximately ~2.0. Serum creatinine remains in baseline range with a current level of 1.9 today. We are being consulted for management of this patient's Chronic Kidney Disease. Past History Past Medical History: heart failure, hypertension, hyperlipidemia, pulmonary embolism Past Surgical History: No surgical history Social history: lives with family. denies: smoking, alcohol abuse Family history: diabetes, hypertension Medications and Allergies Allergies Allergy/AdvReac Type Severity Reaction Status Date / Time No Known Allergies Allergy Unverified 11/25/13 21:37 Home Medications Medication Instructions Recorded Confirmed Last Taken Type Aspirin EC [Aspirin Enteric Coated 81 mg PO QDAY #30 tablet. 11/04/1407/03/17 Rx TAB] Apixaban [Eliquis] 5 mg PO BID 05/22/16 07/04/17 07/03/17 History Sacubitril/Valsartan [Entresto 24 1 each PO BID 05/22/16 07/04/17 07/03/17 History mg-26 mg (Nf)] Metoprolol [Lopressor TAB] 50 mg PO TID #90 tablet 05/28/16 07/04/17 07/03/17 Rx Digoxin [Lanoxin] 0.25 mg PO DAILY #30 tablet 07/07/17 Unknown Rx Furosemide [Lasix TAB] 80 mg PO DAILY #30 tablet 07/07/17 Unknown Rx Pantoprazole [Protonix TAB] 20 mg PO DAILY #30 tablet 07/07/17 Unknown Rx Prednisone [predniSONE 5 mg (6-Day 5 mg PO .TAPER #1 tab.ds.pk 07/07/17 Unknown Rx Pack, 21 Tabs)] Simvastatin [Zocor TAB] 5 mg PO QHS #30 tablet 07/07/17 Unknown Rx Active Meds: Active Medications Acetaminophen (Tylenol) 650 mg PO Q4H PRN PRN Reason: Pain MILD(1-3)/Fever >100.5/DEL TORO Albuterol (Proventil) 2.5 mg IH Q4HRT PRN PRN Reason: Dyspnea Apixaban (Eliquis) 5 mg PO BID [facility] PRN Reason: Protocol Last Admin: 07/07/17 11:12 Dose: 5 mg Aspirin (Halfprin Ec) 81 mg PO QDAY [facility] Last Admin: 07/07/17 11:11 Dose: 81 mg Bisacodyl (Dulcolax) 10 mg ND QDAY PRN PRN Reason: Constipation unrelieved by MOM Digoxin (Lanoxin) 0.25 mg PO DAILY [facility] Last Admin: 07/07/17 11:13 Dose: 0.25 mg Furosemide (Lasix) 80 mg PO 0600,1800 [facility] Magnesium Hydroxide (Milk Of Magnesia) 30 ml PO Q4H PRN PRN Reason: Constipation Metoprolol Tartrate (Lopressor) 50 mg PO TID [facility] Last Admin: 07/07/17 11:14 Dose: 50 mg Miscellaneous Medication (Sacubitril/Valsartan) 1 each PO BID [facility] Last Admin: 07/04/17 11:05 Dose: Not Given Morphine Sulfate (Morphine) 2 mg IV Q4H PRN PRN Reason: Pain, Moderate (4-6) Last Admin: 07/05/17 13:02 Dose: 2 mg Ondansetron HCl (Zofran) 4 mg IM Q4H PRN PRN Reason: Nausea And Vomiting Last Admin: 07/05/17 13:02 Dose: 4 mg Pantoprazole Sodium (Protonix) 20 mg PO BID [facility] Last Admin: 07/07/17 11:13 Dose: 20 mg Prednisone (Deltasone) 40 mg PO QDAY [facility] Last Admin: 07/07/17 11:12 Dose: 40 mg Simvastatin (Zocor) 5 mg PO QHS [facility] Last Admin: 07/06/17 22:10 Dose: 5 mg Review of Systems Constitutional: weight gain, fatigue, no weight loss, no fever, no chills, no sweats, no night sweats Ears, nose, mouth and throat: no ear pain, no ear discharge, no tinnitis, no decreased hearing, no nose pain, no nasal congestion, no nasal discharge, no sinus pressure Cardiovascular: edema, no chest pain, no orthopnea, no palpitations, no rapid/ irregular heart beat, no syncope, no lightheadedness, no shortness of breath Respiratory: no cough, no cough with sputum, no excessive sputum, no hemoptysis , no shortness of breath, no dyspnea on exertion Gastrointestinal: no abdominal pain, no nausea, no vomiting, no diarrhea, no constipation, no change in bowel habits, no hematemesis Musculoskeletal: no neck stiffness, no neck pain, no shooting arm pain, no arm numbness/tingling, no low back pain, no shooting leg pain Integumentary: no rash, no redness, no sores, no wounds, no jaundice, no boils Neurological: no transient paralysis, no paralysis, no weakness, no parathesias , no numbness, no tingling, no seizures, no syncope, no tremors Psychiatric: no anxiety, no memory loss, no change in sleep habits, no sleep disturbances, no insomnia, no hypersomnia, no change in appetite Endocrine: no cold intolerance, no heat intolerance, no polyphagia, no excessive thirst, no polydipsia, no polyuria Hematologic/Lymphatic: no easy bruising, no easy bleeding, no lymphadenopathy, no lymphedema Exam - Vital Signs Vital signs: Vital Signs Temp Pulse Resp BP Pulse Ox 97.6 F 68 16 130/89 98 07/03/17 19:34 07/03/17 19:34 07/03/17 19:34 07/03/17 19:34 07/03/17 19:34 - General Appearance General appearance: well-developed, appears stated age, obese EENT: ATNC, PERRL, hearing intact, vision intact Neck: Present: neck supple, trachea midline Respiratory: Decreased Breath Sounds Heart: regular, S1S2 Gastrointestinal: Present: normoactive bowel sounds, obese Integumentary: warm and dry Neurologic: alert and oriented x3 Musculoskeletal: Present: joint swelling Psychiatric: cooperative Results - Lab Results 07/06/17 04:04 07/07/17 07:10 Most recent lab results Calcium 8.6 mg/dL (8.4-10.2) 07/07/17 07:10 Assessment and Plan - Patient Problems (1) Cardiomyopathy Current Visit: No Status: Chronic Qualifiers: Cardiomyopathy type: C Plan to address problem: On Lasix 80 mg po BID Dilated Nonischemic cardiomyopathy EF 15-20% on echo 05/2016 Chronic atrial fibrillation-on Elquis (2) Chronic kidney disease Current Visit: No Status: Chronic Qualifiers: Chronic kidney disease stage: C Plan to address problem: Renal function reviewed. Patient's baseline serum creatinine~2.0. Serum creatinine 1.9 today with rising BUN, likely secondary to IV Lasix Now on oral Lasix 80 mg po BID, will decrease Lasix frequency to daily- 80 mg po daily Patient has Chronic Kidney Disease, Stage 3 secondary to Hypertensive Nephrosclerosis and possible Cardiorenal Syndrome. Obtain daily weights Avoid Nephrotoxins Obtain urine lytes Monitor I/O's No acute indication for [employer] at this time Notes plans for discharge today. Patient to follow-up with Dr. Dunn in office within 1 week of discharge for continued management of his renal disease Office location- [address] [place] [address]. Phone (3) Hypertension Current Visit: No Status: Chronic Qualifiers: Hypertension type: H Plan to address problem: Blood pressures are stable (4) Acute hypokalemia Current Visit: No Status: Acute Plan to address problem: KCL 10 meq po daily x 3 weeks
[2017-07-07] MEDS ORDERED: LASIX PO SCH (18:00)
[2017-07-08] MEDS ORDERED: LASIX PO SCH (06:00)
[2017-07-08] MEDS ORDERED: K-DUR PO ONE ×2 (14:55→16:00)
--- NOTE | 2017-07-08 15:50 | Vascular Lab Report ---
LOWER EXTREMITY VENOUS DUPLEX: REASON FOR EXAM: Elevated d-dimer. COMMENTS ON THE RIGHT: All veins visualized are freely compressible without evidence of internal echogenicity. Flow is spontaneous and phasic throughout. Soft tissue changes consistent with a Martinez's cyst COMMENTS ON THE LEFT: All veins visualized are freely compressible without evidence of internal echogenicity. Flow is spontaneous and phasic throughout. IMPRESSION: No evidence of acute or chronic deep venous thrombosis in either lower extremity.
--- NOTE | 2017-07-08 15:54 | Vascular Lab Report ---
RIGHT UPPER EXTREMITY VENOUS DUPLEX: REASON FOR EXAM: Swelling of the right upper extremity COMMENTS ON THE RIGHT: All arm veins visualized are freely compressible without evidence of internal echogenicity. The subclavian and internal jugular veins are free of thrombus. Flow is spontaneous and phasic throughout. COMMENTS ON THE LEFT: The subclavian and internal jugular veins are free of thrombus. IMPRESSION: No evidence of acute or chronic deep venous thrombosis in the right upper extremity.
== END 2017-07-07 17:24 | disposition home or self-care (01) | DRG 291 ==
LOC: ED 19:24 → 4A 07-04 08:08
PROVIDERS: ADMIT Internal Medicine; ATTEND Internal Medicine
PROC: 3E0234Z Introduction of Serum, Toxoid and Vaccine into Muscle, Percutaneous Approach (ICD-10-PCS; principal; 2017-07-05)
DX: I13.0 Hypertensive heart and chronic kidney disease with heart failure and stage 1 through stage 4 chronic kidney disease, or unspecified chronic kidney disease (principal); I50.43 Acute on chronic combined systolic (congestive) and diastolic (congestive) heart failure; N17.9 Acute kidney failure, unspecified; Z68.43 Body mass index [BMI] 50.0-59.9, adult; I42.0 Dilated cardiomyopathy; E87.6 Hypokalemia; M10.9 Gout, unspecified; Z23 Encounter for immunization; E66.01 Morbid (severe) obesity due to excess calories; I48.2 Chronic atrial fibrillation; D64.9 Anemia, unspecified; I16.0 Hypertensive urgency; N18.3 Chronic kidney disease, stage 3 (moderate)
CPT/HCPCS: 36415; 71010; 80048; 80053; 81001; 83880; 84132; 85025; 85027; 85379; 90686; 93970; 96372; 99283; 99285; J1885; J1940; J2270; J2405; J3480; J7512